=== PATIENT | female | born 2000 | race Caucasian/White ===

== ENCOUNTER 2022-06-21 22:29 | Emergency (ER) | payer MEDICAID, OTHER ==
[~2022-06-21] VITALS: Ht 162.6 cm; Wt 87.7 kg
[~2022-06-21 22:29] MED LIST: HYDR50CA5 PO; LAMO200T10 PO; LURA80TA2 PO; NORG1TAB80 PO; PRAZ2CAP2 PO; TRAZ-251 PO
[2022-06-22 01:31] VITALS: BP 118/75
[2022-06-22] MEDS ORDERED: LIDO1ADH78 TOP (01:34)
== END 2022-06-22 01:39 | disposition home or self-care (01) ==
LOC: ER 22:30
DX: S46.912A Strain of unspecified muscle, fascia and tendon at shoulder and upper arm level, left arm, initial encounter (principal); F31.9 Bipolar disorder, unspecified; Z79.899 Other long term (current) drug therapy; X58.XXXA Exposure to other specified factors, initial encounter; Y93.89 Activity, other specified; Y92.89 Other specified places as the place of occurrence of the external cause; Y99.8 Other external cause status
CPT/HCPCS: 99283